=== PATIENT | male | born 1940 | race Caucasian/White ===

== ENCOUNTER 2018-07-16 15:21 | Emergency (ER) | payer MEDICARE, OTHER ==
[2018-07-16] MEDS ORDERED: TETANUS,DIPHTHERIA,PERTUSSIS 1 EA SYG IM ONE (15:22)
[2018-07-16] MEDS ORDERED: HYDROcodone 5MG/APAP 325MG 1 EA TAB PO ONE (15:23)
[2018-07-16 15:28] VITALS: TEMP 98.9
[2018-07-16] MEDS ORDERED: CHLORHEXIDINE GLUCONATE 4 % 15 ML UD TOP ONE ×2 (15:39→16:19)
--- NOTE | 2018-07-16 15:45 | RAD ---
EXAM DESCRIPTION: Hand,Right 3 Views CLINICAL HISTORY: injury to the right hand COMPARISON: None. FINDINGS: 3 views of the right hand show comminuted fractures involving the proximal aspect of the proximal phalanges of the fourth and fifth digits with moderate to severe dorsal angulation of the distal fracture fragments. 90 degrees angulation of the fracture fragments is seen. Fracture extends to the articular surface of the fifth metacarpal without definite intra-articular extension of the fourth metacarpal. Soft tissue laceration involving the radial aspect of the distal portion of the proximal phalanx of the third finger is seen. Mild osteoarthritic changes of the DIP joints is seen. Moderate joint space narrowing and joint line osteophytes of the second and third metacarpophalangeal joints is seen. Moderate narrowing of the radiocarpal joints is seen. Calcifications of the TFC are incidentally noted. Moderate vascular calcifications are seen. IMPRESSION: Comminuted significantly displaced fractures involving the base of the proximal phalange ease of the fourth and fifth digits is seen with articular extension noted involving the fifth proximal phalanx fracture. Soft tissue laceration of the middle finger with soft tissue swelling is seen. 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 Electronically signed by: Chris Cheema MD 07/16/2018 3:41 PM CDT
[2018-07-16] MEDS ORDERED: LIDOCAINE 1% 10 ML VIAL INJ ONE (16:14)
--- NOTE | 2018-07-16 16:45 | ED.PDOC ---
History of Present Illness - General Chief Complaint: Upper Extremity Injury Stated Complaint: right fingers injury Time Seen by Provider: 07/16/18 15:22 Source: patient Exam Limitations: no limitations - History of Present Illness Initial Comments: HE FELL AND INJURED HIS RIGHT HAND. SUSTAINS A LACERATION TO THE RIGHT THIRD DIGIT, VOLAR ASPECT AT THE PIP JOINT-OBVIOUSLY DEFORNES, THERE IS ALSO DEFORMITY OF THE FOURTH AND FITH RIGHT DIGITS AT THE LEVEL OF THE MP JOINT. Pain - Upper Extremity: severe: Hand, right Method of Injury: fell Improving Factors: nothing Worsening Factors: nothing Allergies/Adverse Reactions: Allergies NO KNOWN ALLERGY Allergy (Verified 07/16/18 15:28) Home Medications: Ambulatory Orders Acetaminophen W/ Codeine [Tylenol W/ CODEINE #3] 1 ea PO Q6HRS #20 07/16/18 Sulfa/Trimeth 800/160 (Ds) Tab [Bactrim DS] 1 tablet PO BID #20 tab 07/16/18 Review of Systems - Review of Systems Constitutional: States: no symptoms reported EENTM: States: no symptoms reported Respiratory: States: no symptoms reported Cardiology: States: no symptoms reported Gastrointestinal/Abdominal: States: no symptoms reported Genitourinary: States: no symptoms reported Musculoskeletal: States: joint pain, joint swelling Skin: States: other - LACERATION TO THE RIGHT MIDDLE FINGER AT THE PIP JOINT AREA. Endocrine: States: no symptoms reported Hematologic/Lymphatic: States: no symptoms reported Past Medical History (General) - Patient Medical History Hx Stroke: No Hx Congestive Heart Failure: No Hx Hypertension: Yes Hx Diabetes: No - Vaccination History Hx Tetanus, Diphtheria Vaccination: - unknown Hx Influenza Vaccination: No Hx Pneumococcal Vaccination: Yes - Social History Hx Tobacco Use: Yes Family Medical History - Family History Father Family History: Unknown Living Status: Unknown Physical Exam - Physical Exam General Appearance: Alert, Well Developed, Well Groomed, Well Nourished, Other - MODERATE DISTRESS Eyes, Ears, Nose, Throat Exam: PERRL/EOMI Neck: non-tender Cardiovascular/Respiratory: regular rate, rhythm Abdominal Exam: non-tender Back Exam: normal inspection Shoulder Exam: normal inspection Elbow/Forearm Exam: normal inspection Wrist Exam: normal inspection Hand Exam: deformity, ecchymosis, laceration, soft tissue tenderness, swelling Neuro/Tendon: normal sensation, normal motor functions, normal tendon functions Mental Status: alert, oriented x 3 Skin Exam: other - LACERATION TO THE MIDDLE FINGER, VOLAR ASPECT Procedures - Joint Reduction 3rd finger Conscious Sedation: No Reduction Attempts: 1 Pre-Procedure NV Exam: No Post Joint Reduction Film: joint reduced Progress: THE PATIENT HAD A PIP JOINT DISLOCATION AND THAT WAS REDUCED W/O PROBLEM THE PATIENT HAS AN IMPACTED FX OF THE 4TH AND 5TH RIGHT PROXIMAL PHALANGES, DISPLACED AND IMPACTED. WITH A DIGITIAL BLOC AND LIDOCAINE A ATTEMPTED TO REDUCE THESE FRACTURES. UNSUCCESSFUL ATTEMPT. I HAVE DISCUASSED THE CASE WITH DR. HU AND HE WILL FOLLOW THE PATIENT IN HIS OFFICE. - Laceration/Wound Repair Right Volar Finger Wound Length (cm): 4 Wound's Depth, Shape: into muscle Wound Explored: no foreign body removed Irrigated w/ Saline (cc's): 100 Betadine Prep?: No - HIBICLENS Volume Anesthetic (cc's): 6 Wound Debrided: minimal Suture Size/Type: 4:0 Number of Sutures: 5 Layer Closure?: No Sterile Dressing Applied?: Yes Splint Applied?: Yes - GUTTER SPLINT Departure - Departure Clinical Impression: Dislocated finger Qualifiers: Encounter type: initial encounter Qualified Code(s): S63.259A - Unspecified dislocation of unspecified finger, initial encounter Fracture of finger Qualifiers: Encounter type: initial encounter Finger: little finger Fracture type: closed Phalanx: proximal Fracture alignment: displaced Laterality: right Qualified Code(s): S62.616A - Displaced fracture of proximal phalanx of right little finger, initial encounter for closed fracture Time of Disposition: 16:56 Disposition: Discharge to Home or Self Care Condition: Good Departure Forms: ED Discharge - Pt. Copy, Patient Portal Self Enrollment Instructions: DI for Finger Fracture, DI for Finger Dislocation Diet: resume usual diet Referrals: Jacky Dumont MD [Active Staff] - 1-2 Weeks Prescriptions: Acetaminophen W/ Codeine [Tylenol W/ CODEINE #3] 1 ea PO Q6HRS #20 Sulfa/Trimeth 800/160 (Ds) Tab [Bactrim DS] 1 tablet PO BID #20 tab Home Medications: Ambulatory Orders Acetaminophen W/ Codeine [Tylenol W/ CODEINE #3] 1 ea PO Q6HRS #20 07/16/ Sulfa/Trimeth 800/160 (Ds) Tab [Bactrim DS] 1 tablet PO BID #20 tab 07/16/18
[2018-07-16] MEDS ORDERED: NEOMYCIN-BACITRACIN-POLYMYXIN 0.9 GM UD TOP ONE (16:55)
[2018-07-16 17:26] VITALS: BP 145/85; O2SAT 95
== END 2018-07-16 17:25 | disposition home or self-care (01) ==
LOC: ER 15:21
DX: S62.616A Displaced fracture of proximal phalanx of right little finger, initial encounter for closed fracture (principal); S62.614A Displaced fracture of proximal phalanx of right ring finger, initial encounter for closed fracture; S63.292A Dislocation of distal interphalangeal joint of right middle finger, initial encounter; S61.212A Laceration without foreign body of right middle finger without damage to nail, initial encounter; I10 Essential (primary) hypertension; Z87.891 Personal history of nicotine dependence; W19.XXXA Unspecified fall, initial encounter; Y92.9 Unspecified place or not applicable

== ENCOUNTER → 2018-07-22 | Outpatient (CLI) | payer OTHER ==
--- NOTE | 2018-07-22 15:03 | RAD ---
EXAM DESCRIPTION: Hand,Right 3 Views CLINICAL HISTORY: M79.641 COMPARISON: None Available. TECHNIQUE: Three views right hand FINDINGS: Three views of the hand demonstrate osteopenia with moderately severe multifocal degenerative disease. An ulnar splint is noted in place. Slightly comminuted fractures at the base of the fourth proximal phalanx and more subtle fracture at the base of the fifth proximal phalanx is noted with significant dorsal angulation evident on the lateral and oblique views. Very little ulnar angulation is evident on the AP view. The other phalanges and the other digits appear intact. IMPRESSION: 1. Dorsally angulated fractures at the base of the fourth and fifth proximal phalangeal shafts with slightly improved alignment particularly in the AP projection with no significant ulnar angulation evident on today's study. 2. Advanced degenerative changes and osteopenia of the remainder the hand. Electronically signed by: Samir Montes MD 07/22/2018 3:00 PM CDT
== END ==
LOC: RAD 10:00
PROVIDERS: ATTEND Orthopaedic Surgery
DX: S62.616A Displaced fracture of proximal phalanx of right little finger, initial encounter for closed fracture (principal); S62.614A Displaced fracture of proximal phalanx of right ring finger, initial encounter for closed fracture; M85.841 Other specified disorders of bone density and structure, right hand

== ENCOUNTER → 2018-08-22 | Outpatient (CLI) | payer OTHER ==
--- NOTE | 2018-08-22 16:47 | RAD ---
EXAM DESCRIPTION: Hand,Right 3 Views CLINICAL HISTORY: S62.604D, S62.602D COMPARISON: July 22, 2018 TECHNIQUE: AP, LATERAL, AND OBLIQUE IMPRESSION: 1. Angulated fractures at the bases of the fourth and fifth proximal phalanges with no observed callus formation. Stable volar angulation at the fracture sites. 2. Severe arthritic changes second and third MCP joints. Electronically signed by: Los Coppola MD 08/22/2018 4:44 PM CDT
== END ==
LOC: RAD 09:07
PROVIDERS: ATTEND Orthopaedic Surgery
DX: S62.604D Fracture of unspecified phalanx of right ring finger, subsequent encounter for fracture with routine healing (principal); S62.602D Fracture of unspecified phalanx of right middle finger, subsequent encounter for fracture with routine healing; M19.041 Primary osteoarthritis, right hand

== ENCOUNTER 2018-08-26 05:35 | Day surgery (SDC) | payer OTHER ==
[2018-08-26] MEDS ORDERED: PROPARACAINE 0.5% OPHTH SOL 15 ML BTTL ONE (11:05)
[2018-08-26] MEDS ORDERED: MOXIFLOXACIN HCL (OPHTH) 1 DROP DROPS ONE (11:05)
[2018-08-26] MEDS ORDERED: TROP 1%/CYCLOPEN 1%/PHENYL 2% DROPS ONE (11:06)
[2018-08-26] MEDS ORDERED: MIDAZOLAM INJ 2 MG/2 ML VIAL ONE (12:26)
[2018-08-26] MEDS ORDERED: PROPARACAINE 0.5% OPHTH SOL 15 ML BTTL LEFT_EYE ONE (12:27)
[2018-08-26] MEDS ORDERED: LIDOCAINE 1% 2 ML VIAL INJ ONE (12:42)
[2018-08-26] MEDS ORDERED: MOXIFLOXACIN HCL (OPHTH) 1 DROP DROPS LEFT_EYE ONE ×2 (12:48→12:57)
[2018-08-26] MEDS ORDERED: DEXAMETHASONE 0.1% OPHTH SOL 1 DROP LEFT_EYE ONE ×2 (12:48→12:58)
[2018-08-26] MEDS ORDERED: BRIMONIDINE 0.2% OPHTH DROPS LEFT_EYE ONE ×2 (12:49→12:58)
[2018-08-26] MEDS ORDERED: TOBRAMYCIN SULF 0.3 % OPHT SOL 1 DROP LEFT_EYE ONE ×2 (12:49→12:58)
== END 2018-08-26 13:41 | disposition home or self-care (01) ==
LOC: AMB 05:35
PROVIDERS: ATTEND Ophthalmology
DX: H25.042 Posterior subcapsular polar age-related cataract, left eye (principal)
CPT/HCPCS: 00142; 66984; J2250

== ENCOUNTER → 2019-03-12 | Outpatient (CLI) | payer MEDICARE, OTHER | END | disposition home or self-care (01) | LOC: LAB.O 10:47 | PROVIDERS: ATTEND Nurse Practitioner Family | DX: R19.7 Diarrhea, unspecified (principal) ==

== ENCOUNTER → 2020-05-11 | Outpatient (CLI) | payer MEDICARE, OTHER | LOC: LAB.O 14:09 | PROVIDERS: ATTEND Surgery | DX: C44.229 Squamous cell carcinoma of skin of left ear and external auricular canal (principal) ==

== ENCOUNTER → 2020-05-24 | Outpatient (CLI) | payer MEDICARE, OTHER ==
--- NOTE | 2020-05-25 07:57 | CT ---
EXAM DESCRIPTION: Soft Tissue Neck w/Contrast CLINICAL HISTORY: disorders of left ear COMPARISON: None. TECHNIQUE: Postcontrast CT images of the neck soft tissues are obtained with coronal and sagittal reconstructed images. This exam was performed according to our departmental dose-optimization program, which includes automated exposure control, adjustment of the mA and/or kV according to patient size and/or use of iterative reconstruction technique . FINDINGS: Mild calcified plaque of the intracranial carotid arteries. Visualized paranasal sinuses and mastoid air cells show mild mucosal thickening in the ethmoid air cells. Moderate mucosal thickening and near-complete opacification of the right maxillary sinus is seen. Moderate periosteal thickening is seen around both maxillary sinuses are Small fluid in the inferior left mastoid air cells. Soft tissue attenuation mass in the left external auditory canal measures at least 1.2 cm transverse by 0.3 cm AP. Inner ear ossicles are grossly unremarkable. No bone destructive changes or dehiscence of the mastoid air cells. The left ear which is asymmetric soft tissue thickening and enhancement. Soft tissue defect along the posterior mid aspect is seen. Focal area of enhancement measuring 13 x 11 mm is seen extending to the subcutaneous soft tissue without involvement of the underlying bone. The bilateral parotid and submandibular glands are normal and symmetric. Soft tissue of the posterior pharynx and oropharynx appear symmetric and unremarkable. The epiglottis and vocal cords are unremarkable. Thyroid is unremarkable. Moderate eccentric irregular calcified plaque of the carotid bulb to proximal internal carotid artery seen bilaterally. No pathologically enlarged submandibular or cervical chain lymphadenopathy. Borderline left submandibular lymph node measures 9 mm image 51 of series 2. Surgical clip in the mid left neck soft tissues. Visualized lung apices show moderate centrilobular emphysematous changes. A spiculated noncalcified pulmonary nodule in the left upper lobe measuring at least 1.6 cm is incompletely included in the [id number]. The osseous structures show some cortical cyst of the odontoid measuring 1.4 cm with chronic erosive changes of the odontoid. Soft tissue thickening with calcification posterior to the odontoid measures 10 mm contributing to mild spinal canal stenosis. Partial fusion of the vertebral bodies and posterior elements at C3-4. Severe disc space narrowing and degenerative changes at C5-6 and C6-7 contributing to at least mild to moderate spinal canal stenosis with moderate to severe bilateral foraminal encroachment. Facet arthropathy is most significant on the right at C2-3 and left from C3 through C6. IMPRESSION: Soft tissue mass with enhancement and soft tissue erosive changes are seen associated with the left ear.. No extension to the adjacent osseous structures is seen. Mass in the left external auditory canal could represent cerumen although neoplastic process with cortical to exclude. Nonspecific borderline left submandibular lymph node measures up to 9 mm greatest diameter. Otherwise no pathologic lymphadenopathy in the neck soft tissues. 16 mm suspicious left solid pulmonary nodule within the upper lobe detected on incomplete chest CT. Recommend prompt non-contrast Chest CT for further evaluation. These guidelines do not apply to immunocompromised patients and patients with cancer. Follow up in patients with significant comorbidities as clinically warranted. For lung cancer screening, adhere to Lung-RADS guidelines. Reference: Radiology. 2017; 284(1):228-43. Moderate calcific atherosclerotic disease. Moderate to severe spondylitic changes of the spine. Findings at the level of the odontoid suggest gout or rheumatoid arthritis. Subacute chronic sinus disease is seen. Electronically signed by: Chris Cheema MD 05/25/2020 7:56 AM [facility]
== END ==
LOC: CT 09:35
PROVIDERS: ATTEND Surgery
DX: Z01.812 Encounter for preprocedural laboratory examination (principal); H93.8X2 Other specified disorders of left ear; M79.9 Soft tissue disorder, unspecified; R91.1 Solitary pulmonary nodule